=== PATIENT | female | born 1985 | race Asian ===

== ENCOUNTER → 2021-02-24 08:02 | Outpatient (BNVA) | payer OTHER, SELFPAY | PROVIDERS: Visit Provider Obstetrics & Gynecology | DX: O09.899 Supervision of other high risk pregnancies, unspecified trimester (principal); Z86.32 Personal history of gestational diabetes | CPT/HCPCS: 82951; 82952; 84315; 85025 ==

== ENCOUNTER → 2021-04-25 13:27 | Outpatient (BNVA) | payer OTHER, SELFPAY | PROVIDERS: Visit Provider Obstetrics & Gynecology | DX: O09.899 Supervision of other high risk pregnancies, unspecified trimester (principal); O09.893 Supervision of other high risk pregnancies, third trimester; O24.419 Gestational diabetes mellitus in pregnancy, unspecified control; O09.213 Supervision of pregnancy with history of pre-term labor, third trimester; O09.293 Supervision of pregnancy with other poor reproductive or obstetric history, third trimester; Z3A.36 36 weeks gestation of pregnancy | CPT/HCPCS: 36416; 82962; 84315; 87081 ==

== ENCOUNTER 2021-04-29 17:01 | Inpatient (IN) | payer OTHER, SELFPAY ==
[2021-04-29] VITALS (37 sets, daily range): BP systolic 95–171; BP diastolic 51–75; PULSE 69–112; RESP 15–17; TEMP 36.5–37.9; BMI 27.5
[2021-04-29 17:41] LABS: Basophils % 0.3 %; Eosinophils # 0.1 10^3/uL (0.0-0.8); Eosinophils % 0.9 %; Hematocrit 36.1 % (37.0-47.0); Hemoglobin 12.5 g/dL (11.5-15.3); Lymphocytes # 2.5 10^3/uL (0.8-4.8); Lymphocytes % 21.1 %; Mean Corpuscular HGB Conc 34.6 g/dL (30.0-36.0); Mean Corpuscular Hemoglobin 32.7 pg (28.0-34.0); Mean Corpuscular Volume 94.5 fl (81-99); Mean Platelet Volume 10.4 fL (7.4-10.4); Monocytes # 0.8 10^3/uL (0.2-0.9); Neutrophils # 8.41 10^3/uL (1.8-7.7); Nucleated Red Blood Cells % 0 %; Platelet Count 303 10^3/cmm (130-400); Red Blood Count 3.82 10^6/uL (4.1-5.3); Red Cell Distribution Width 13.7 % (12.1-15.1)
--- NOTE | 2021-04-29 17:45 | PM.OPHPUD ---
Labor & Delivery H&P Update Date of Procedure: April 29, 2021 Date H&P Performed: 04/25/21 H&P update information: I have reviewed H&P completed within last 30 days, I have examined patient prior to procedure and Changes to prior documentation as noted here Changes to previous documentation: The patient's cervix has changed to /2. She is in active labor Admission Diagnosis: Preop diagnosis: iup@ 37w3d Related Problem List Diagnoses (1) Gestational diabetes: (2) History of delivery: (3) Supervision of other high-risk :
[2021-04-29] MEDS: dextrose 5%-lactated ringers 1,000 ML 125 ML IV (19:35)
[2021-04-29] MEDS: fentaNYL 50 mcg/mL INJ 2mL IVP ×2 (19:36→20:38)
[2021-04-29] MEDS: oxytocin 30 UNIT/500 ML BAG 600 UNIT IV (20:27)
[2021-04-29] MEDS: lidocaine 2% INJ 20 mL INJECTION (20:29)
--- NOTE | 2021-04-29 21:06 | P.PCNOB_ITS ---
Delivery Note: Date of delivery: April 29, 2021 Pre-delivery diagnoses: iup @ 37w3d, active labor Post-delivery diagnoses: same Procedure: Op report anesthesia: Local Delivering Physician: naima Estimated blood loss (mL): 430 Findings: term female in the ALEXUS presentation Pre-Delivery Course: The patient presented in active labor. She had complete cervical dilation and began pushing. Delivery: The patient had complete cervical dilation and began to push. The head delivered in the ALEXUS position over an intact perineum under no anesthesia. The nose and mouth were bulb suctioned. The shoulders and body delivered atraumatically. The baby was placed onto the mother's abdomen. The cord was clamped and cut. . The placenta delivered spontaneously. It was inspected and found to be intact. Inspection of the perineum revealed a second- degree perineal laceration. This was repaired in the usual fashion. Estimated blood loss 430 mL. Apgars on baby were 8 at 1 minute and 9 at 5 minutes. Weight of baby is 6 pounds 10 ounces. Mother and baby were stable post delivery. History History History 4 Term 1 Miscarriages/Ectopic 1 1 Living Children 2 A&P Assessment and plan (1) Gestational diabetes: Status: Acute (2) History of delivery: Status: Acute (3) Supervision of other high-risk : Status: Acute Coding Level of Care Code Acute Ammunition Officer for Chg Fwd Diagnoses Gestational diabetes O24.419 History of delivery Z87.51 Supervision of other high-risk O09.899
[2021-04-30] VITALS (9 sets, daily range): BP systolic 87–106; BP diastolic 51–64; PULSE 57–111; RESP 17; TEMP 36.6
[2021-04-30] MEDS: acetaminophen 325 mg Tablet 650 MG PO (07:26)
[2021-04-30] MEDS: ibuprofen 800 mg tablet PO ×2 (09:45→18:45)
[2021-04-30] MEDS: prenatal vitamin Capsule 1 CAP PO (09:45)
[2021-04-30] MEDS: docusate sodium 100 mg Capsule PO ×2 (09:45→18:45)
[2021-04-30 10:25] LABS: Hematocrit 29.1 % (37.0-47.0); Mean Corpuscular HGB Conc 34.4 g/dL (30.0-36.0); Mean Corpuscular Hemoglobin 32.6 pg (28.0-34.0); Mean Corpuscular Volume 94.8 fl (81-99); Mean Platelet Volume 10.2 fL (7.4-10.4); Platelet Count 222 10^3/cmm (130-400); Red Blood Count 3.07 10^6/uL (4.1-5.3); Red Cell Distribution Width 13.7 % (12.1-15.1); White Blood Count 14.9 10^3/uL (4.0-10.0)
--- NOTE | 2021-04-30 14:25 | P.DS_ITS ---
Discharge Providers Date of Admission: 04/29/21 17:01 Date of Discharge: April 30, 2021 Attending Provider at Admission: Jagdeep Henson MD Attending Provider at Discharge: Khushboo Leung MD Diagnoses at Discharge Discharge Diagnosis (1) Gestational diabetes: Status: Acute (2) History of delivery: Status: Acute (3) Supervision of other high-risk : Status: Acute Reason for Visit Reason for Visit: spotting and back pain Physical Exam Narrative: EXAM NARRATIVE: The patient is doing well today. No concerns. She is , tolerating a regular diet. She denies any pain. Const: COMMON NORMALS: no acute distress, average body habitus, patient oriented x3, no limitations, healthy appearing, alert and well nourished GENERAL APPEARANCE: cooperative, comfortable, well kempt and well developed ORIENTATION/CONSCIOUSNESS: Yes awake, Yes oriented to person, Yes oriented to place and Yes oriented to time Resp: COMMON NORMALS: normal respiratory effort EFFORT & INSPECTION: Yes able to speak in complete sentences GI: COMMON NORMALS: Soft to palpation and non-tender PALPATION: Yes Soft to palpation Extremity: COMMON NORMALS: normal to inspection Neuro: COMMON NORMALS: patient oriented x3 SENSORIUM/ORIENTATION: Yes alert, Yes oriented to person, Yes oriented to place and Yes oriented to time Psych: COMMON NORMALS: mental status grossly normal, Normal thought process present, cooperative, normal affect and speech normal APPEARANCE: Yes grossly normal and Yes well kempt ATTITUDE: Yes calm and Yes engaged ACTIVITY/MOTOR BEHAVIOR: Yes appropriate eye contact SPEECH: Yes normal speech THOUGHT PROCESS: Normal thought process present Discharge Data Data Completed and Pending: Labs from last 24 hours 04/30/21 04/29/21 10:00 17:00 WBC 14.9 H 12.0 H RBC 3.07 L 3.82 L Hgb 10.0 L 12.5 Hct 29.1 L 36.1 L MCV 94.8 94.5 MCH 32.6 32.7 MCHC 34.4 34.6 RDW 13.7 13.7 Plt Count 222 303 MPV 10.2 10.4 Neut % (Auto) 70.0 Lymph % (Auto) 21.1 [place] % (Auto) 7.0 Eos % (Auto) 0.9 Baso % (Auto) 0.3 Neut # (Auto) 8.41 H Lymph # (Auto) 2.5 [place] # (Auto) 0.8 Eos # (Auto) 0.1 Baso # (Auto) 0.0 Nucleated RBC % (a uto) 0 Nucleated RBCs # 0.0 Vitals: Last Vital Signs Temp 97.9 F 04/30/21 01:43 Pulse 70 04/30/21 09:49 Resp 17 04/30/21 10:14 BP 96/53 04/30/21 09:49 Discharge Plan Discharge Patient Disposition: Home Condition: Stable Prescriptions: Continued prenat.vits,torito,oat-wkek-rjisn Tablet 1 tab PO DAILY RF: 0 metformin 500 mg tablet 500 mg PO BID RF: 0 calcium carbonate [Calcium 500] 500 mg calcium (1,250 mg) tablet 500 mg PO DAILY RF: 0 ferrous sulfate 325 mg (65 mg iron) tablet 325 mg PO DAILY RF: 0 metformin 500 mg tablet 500 mg PO BID Qty: 60 RF: 6 (DME) Blood Glucose Test Strip See Rx Instructions .Route Qty: 50 RF: 12 Discharge Orders: Discharge Order (Routine); Ordered 04/30/21 Ordered By: Khushboo Leung Patient Instructions: Depression (DC), Expression, Collection and Storage of Breast Milk (DC), Bleeding (DC), Preeclampsia and Eclampsia After Delivery (GEN), Breast Care for the Mother (DC), OB Discharge Report, OB Food/Drug Interaction Guide, Opioid Safety, OB Home Care, OB Vaginal Deliveries - [facility] Discharge Attestations Time Spent in Discharge Care*: less than 30 min Quality Metrics Clinical Quality Measures During this hospital stay, did patient experience: None Coding Level of Care Code Acute Chg FW DC note Diagnoses Gestational diabetes O24.419 History of delivery Z87.51 Supervision of other high-risk O09.899
== END 2021-04-30 22:30 | disposition home or self-care (01) | DRG 807 ==
LOC: OPOB 17:01 → OBGYN 17:01
PROVIDERS: Admitting Provider Obstetrics & Gynecology; Visit Provider Obstetrics & Gynecology
DX: O24.425 Gestational diabetes mellitus in childbirth, controlled by oral hypoglycemic drugs (principal); Z37.0 Single live birth; O70.1 Second degree perineal laceration during delivery; Z3A.37 37 weeks gestation of pregnancy; Z87.51 Personal history of pre-term labor
CPT/HCPCS: 36415; 59025; 59409; 85025; 85027; 96374; 96376; 98960; 99211; J3010

== ENCOUNTER → 2021-07-16 08:08 | Outpatient (BNVA) | payer OTHER, SELFPAY | PROVIDERS: Visit Provider Obstetrics & Gynecology | DX: O24.419 Gestational diabetes mellitus in pregnancy, unspecified control (principal); Z3A.00 Weeks of gestation of pregnancy not specified | CPT/HCPCS: 82947 ==

== ENCOUNTER → 2021-11-27 15:33 | Outpatient (BNVA) | payer OTHER, SELFPAY | PROVIDERS: Visit Provider Obstetrics & Gynecology | DX: Z01.419 Encounter for gynecological examination (general) (routine) without abnormal findings (principal) | CPT/HCPCS: 87624 ==

== ENCOUNTER 2023-11-13 15:28 | Emergency (ER) | payer OTHER, SELFPAY ==
[2023-11-13 15:32] VITALS: BP 121/84; PULSE 110; RESP 16; TEMP 36.8; O2SAT 99
--- NOTE | 2023-11-13 15:51 | ED_ITS ---
HPI - Abdominal Pain 2 General: Chief Complaint: Abdominal Pain Stated Complaint: abd pain Time Seen by Provider: 11/13/23 15:48 History of Present Illness: 38-year-old female comes in today with r ight upper quadrant abdominal pain that radiates to the back. Patient appears nontoxic. Patient reports no abdominal surgeries. Patient denies any alcohol, tobacco, or drug use. Patient reports back pain waxes and wanes. Patient reports some improvement of symptoms since arriving to the ER as her appetite has improved. Patient reports pain since last night. Associated Symptoms: Reports bloating, excessive flatus, heartburn and nausea Review of Systems 2 General: Reports: 10 or more systems reviewed and unremarkable except in HPI and below GI: Reports: abdominal pain, nausea, heartburn, bloating and excessive flatus PFSH ED 2 PFSH: Medical History History of gestational diabetes mellitus (GDM) History of labor Surgical History No pertinent past surgical history Family History Father Diabetes Mother Hypertension Denies family history of CAD (coronary artery disease) Clotting disorder Hyperlipidemia Chronic kidney disease (CKD) Bleeding disorder Cancer Stroke Social History Smoking and tobacco/nicotine status: unknown if used tobacco/nicotine Physical Exam 2 Const: COMMON NORMALS: alert HENMT: COMMON NORMALS: normocephalic HEAD & SCALP: normocephalic Neck/C-Spine: COMMON NORMALS: full ROM Resp: COMMON NORMALS: normal respiratory effort and clear to auscultation bilaterally AUSCULTATION: clear to auscultation bilaterally Cardio: COMMON NORMALS: regular rate RATE: regular rate GI: COMMON NORMALS: Soft to palpation and non-tender PALPATION: Yes Soft to palpation Back/Pelvis: COMMON NORMALS: thoracic and lumbar spine normal to inspection Extremity: COMMON NORMALS: full ROM Neuro: SENSORIUM/ORIENTATION: Yes alert Skin: COMMON NORMALS: turgor normal GENERAL SKIN EXAM: turgor normal Course 2 Vital Signs: Vital signs: Vital Signs Temperature 98.3 F 11/13/23 15:32 Pulse Rate 110 H 11/13/23 15:32 Respiratory Rate 16 11/13/23 15:32 Blood Pressure 121/84 11/13/23 15:32 Pulse Oximetry 99 11/13/23 15:32 Oxygen Delivery Me thod Room Air 11/13/23 15:32 MDM - Abdominal Pain Medical Decision Making Patient comes in today for complaints of right upper quadrant abdominal pain. On the exam patient has some right upper quadrant tenderness with deep palpation. No CVA tenderness. Abdomen soft nontender. Vital signs are normal. Differential diagnosis is cholecystitis, cholelithiasis, pancreatitis, GERD, gastritis, constipation. CBC CMP and urinalysis were unremarkable. Ultrasound gallbladder noted cholelithiasis without signs of cholecystitis. Reviewed exam with patient recommended follow-up with surgeon for further treatment of cholelithiasis. Recommend return to the ER for worsening symptoms or new concerns. Lab Data 11/13/23 15:55 11/13/23 15:55 Labs/Radiology: Laboratory Results WBC 10.64 10^3/uL (3.29-11.43) 11/13/23 15:55 RBC 4.46 10^6/uL (3.85-5.65) 11/13/23 15:55 Hgb 13.90 g/dL (11.27-16.99) 11/13/23 15:55 Hct 41.6 % (36-47) 11/13/23 15:55 MCV 93.3 fl (85-98) 11/13/23 15:55 MCH 31.2 pg (27-33) 11/13/23 15:55 MCHC 33.4 g/dL (30-55) 11/13/23 15:55 RDW 12.7 % (12.1-15.1) 11/13/23 15:55 Plt Count 388 10^3/cmm (157-399) 11/13/23 15:55 MPV 10.4 fL (7.4-10.4) 11/13/23 15:55 Neut % (Auto) 69.3 % 11/13/23 15:55 Lymph % (Auto) 22.3 % 11/13/23 15:55 [place] % (Auto) 6.8 % 11/13/23 15:55 Eos % (Auto) 0.7 % 11/13/23 15:55 Baso % (Auto) 0.6 % 11/13/23 15:55 Neut # (Auto) 7.39 10^3/uL (1.8-7.7) 11/13/23 15:55 Lymph # (Auto) 2.4 10^3/uL (0.8-4.8) 11/13/23 15:55 [place] # (Auto) 0.7 10^3/uL (0.2-0.9) 11/13/23 15:55 Eos # (Auto) 0.1 10^3/uL (0.0-0.8) 11/13/23 15:55 Baso # (Auto) 0.1 10^3/uL (0.0-0.1) 11/13/23 15:55 Nucleated RBC % (auto) 0 % 11/13/23 15:55 Nucleated RBCs # 0.0 /100WBC 11/13/23 15:55 Sodium 138 mmol/L (136-145) 11/13/23 15:55 Potassium 3.7 mmol/L (3.5-5.1) 11/13/23 15:55 Chloride 100 mmol/L (98-107) 11/13/23 15:55 Carbon Dioxide 24 mmol/L (22-29) 11/13/23 15:55 Anion Gap 17.7 (5-19) 11/13/23 15:55 BUN 7 mg/dL (6-20) 11/13/23 15:55 Creatinine 0.5 mg/dL (0.5-0.9) 11/13/23 15:55 GFR Calculation 138.1 mL/min (90-130) H 11/13/23 15:55 Glucose 104 mg/dL (65-115) 11/13/23 15:55 Calculated Osmolality 284 mOsm/kg (285-295) L 11/13/23 15:55 Calcium 9.7 mg/dL (8.5-10.5) 11/13/23 15:55 Total Bilirubin 0.4 mg/dL (0.15-1.2) 11/13/23 15:55 AST 12 U/L (0-32) 11/13/23 15:55 ALT 14 U/L (0-33) 11/13/23 15:55 Alkaline Phosphatase 51 U/L (35-105) 11/13/23 15:55 Total Protein 8.5 g/dL (6.6-8.7) 11/13/23 15:55 Albumin 4.9 g/dL (3.5-5.2) 11/13/23 15:55 Globulin 3.6 g/dL (1.3-4.6) 11/13/23 15:55 Lipase 32 U/L (13-60) 11/13/23 15:55 HCG, Qual Negative (Negative) 11/13/23 15:55 Urine Color Yellow (Yellow) 11/13/23 15:49 Urine Appearance Clear (CLEAR) 11/13/23 15:49 Urine pH 6 (5-7) 11/13/23 15:49 Ur Specific [place] 1.005 (1.005-1.030) 11/13/23 15:49 Urine Protein Neg (Negative) 11/13/23 15:49 Urine Glucose (UA) Norm (Normal) 11/13/23 15:49 Urine Ketones Negative (Negative) 11/13/23 15:49 Urine Blood Neg (Negative) 11/13/23 15:49 Urine Nitrate Negative (Negative) 11/13/23 15:49 Urine Bilirubin Neg (Negative) 11/13/23 15:49 Urine Urobilinogen Norm mg/dL (Negative) 11/13/23 15:49 Ur Leukocyte Esterase Negative (Negative) 11/13/23 15:49 XR interpretation done by ED provider, pending radiology final review Discharge Plan Discharge Patient Disposition: Home Clinical Impression: Cholelithiasis Qualifiers: Cholelithiasis location: gallbladder Cholecystitis presence: without cholecystitis Biliary obstruction: without biliary obstruction Qualified Code(s): K80.20 - Calculus of gallbladder without cholecystitis without obstruction Condition: Stable Prescriptions: New ondansetron 4 mg tablet,disintegrating 4 mg PO Q8H PRN (Reason: nausea and vomiting) Qty: 10 0RF ketorolac 10 mg tablet 10 mg PO Q6H PRN (Reason: pain) Qty: 12 0RF Rx Instructions: maximum total duration of 5 days from all oral, intranasal, or parenteral formulations dicyclomine 20 mg tablet 20 mg PO TID Qty: 30 0RF Rx Instructions: take before each meal for gallbladder colic No Action prenat.vits,torito,ssx-uwrl-opqil Tablet 1 tab PO DAILY Discharge Orders: Discharge ED (Routine); Ordered 11/13/23 Ordered By: Hugo J Fnin Discharge Diet: Low Fat Discharge Activity: Increase activity as tolerated Patient Instructions: Gallstones (ED), Low Fat Diet (ED) Activity Restrictions/Additional Instructions: Follow-up with surgeon to discuss removal of gallbladder. Return to ED for worsening symptoms such as uncontrolled pain, fever greater than 100.4, yellowing of the skin or eyes. Coding Level of Care Code ED Underwear Trimmer for Miguel Rainey
--- NOTE | 2023-11-13 15:55 | USR_ITS ---
PROCEDURE INFORMATION: Exam: US Abdomen, Limited; Right Upper Quadrant Exam date and time: 11/13/2023 4:17 PM Age: 38 years old Clinical indication: Abdominal pain; Acute; Additional info: Ruq pain TECHNIQUE: Imaging protocol: Real time ultrasound of the abdomen with image documentation. Limited exam focused on the right upper quadrant. COMPARISON: US OB [facility] w [facility] 04/25/2021 12:55 PM FINDINGS: Liver: Normal. No masses. Gallbladder: Stones and sludge are present within the gallbladder. The wall is borderline at 3 mm. Biliary ducts: Normal. No stones. No dilation. Pancreas: Visualized pancreas is unremarkable. Right kidney: Normal. No mass. No hydronephrosis. US/US gall bladder [id number] IMPRESSION: Cholelithiasis with a borderline gallbladder wall.
[2023-11-13] MEDS: sodium chloride 0.9% 500 ML 999 ML IV (15:59)
[2023-11-13] MEDS: ondansetron 2 mg/ML SDV 2 mL 4 MG IVP (16:00)
[2023-11-13 16:01] LABS: Basophils # 0.1 10^3/uL (0.0-0.1); Basophils % 0.6 %; Eosinophils # 0.1 10^3/uL (0.0-0.8); Eosinophils % 0.7 %; Hematocrit 41.6 % (36-47); Lymphocytes # 2.4 10^3/uL (0.8-4.8); Lymphocytes % 22.3 %; Mean Corpuscular HGB Conc 33.4 g/dL (30-55); Mean Corpuscular Hemoglobin 31.2 pg (27-33); Mean Corpuscular Volume 93.3 fl (85-98); Mean Platelet Volume 10.4 fL (7.4-10.4); Monocytes # 0.7 10^3/uL (0.2-0.9); Monocytes % 6.8 %; Neutrophils # 7.39 10^3/uL (1.8-7.7); Neutrophils % 69.3 %; Nucleated Red Blood Cells % 0 %; Platelet Count 388 10^3/cmm (157-399); Red Blood Count 4.46 10^6/uL (3.85-5.65); Red Cell Distribution Width 12.7 % (12.1-15.1); White Blood Count 10.64 10^3/uL (3.29-11.43)
[2023-11-13] MEDS: ketorolac 30 mg/mL INJ 15 MG IVP (16:01)
[2023-11-13 16:09] LABS: Add Urine Microscopic? NO; Charge for UA Resulting for Rev
[2023-11-13 16:20] LABS: Alanine Aminotransferase 14 U/L (0-33); Albumin Level 4.9 g/dL (3.5-5.2); Alkaline Phosphatase 51 U/L (35-105); Anion Gap 17.7 (5-19); Aspartate Amino Transferase 12 U/L (0-32); Blood Urea Nitrogen 7 mg/dL (6-20); Calcium 9.7 mg/dL (8.5-10.5); Carbon Dioxide 24 mmol/L (22-29); Chloride 100 mmol/L (98-107); Creatinine Clr Calc Pharmacy 123.8635; Globulin 3.6 g/dL (1.3-4.6); Glomerular Filtration Rate 138.1 mL/min (90-130); Glucose 104 mg/dL (65-115); Lipase 32 U/L (13-60); Osmolality Calculated 284 mOsm/kg (285-295); Potassium 3.7 mmol/L (3.5-5.1); Sodium 138 mmol/L (136-145); Total Bilirubin 0.4 mg/dL (0.15-1.2); Total Protein 8.5 g/dL (6.6-8.7)
[2023-11-13 16:34] VITALS: BP 127/83; PULSE 111; RESP 16; O2SAT 97
[2023-11-13 16:41] LABS: HCG, Serum Qual Negative (Negative)
[2023-11-13 16:41] LABS: Bilirubin Urine Neg (Negative); Blood Urine Neg (Negative); Glucose Urine UA Norm (Normal); Ketones Urine Negative (Negative); Leukocyte Esterase Urine Negative (Negative); Nitrate Urine Negative (Negative); Protein Urine Neg (Negative); Specific Gravity, Urine 1.005 (1.005-1.030); Urine Appearance Clear (CLEAR); Urine Color Yellow (Yellow); Urobilinogen Urine Norm (Negative); pH Urine 6 (5-7)
[2023-11-13 17:13] VITALS: BP 116/74; PULSE 88; RESP 16; O2SAT 95
--- NOTE | 2023-11-15 14:42 | DCPLANNER ---
messaged gen surg for er f/u
== END 2023-11-13 17:15 | disposition home or self-care (01) ==
PROVIDERS: Emergency Provider Nurse Practitioner Family
DX: K80.20 Calculus of gallbladder without cholecystitis without obstruction (principal)
CPT/HCPCS: 76705; 80053; 81003; 83690; 84703; 85025; 96361; 96374; 96375; 99285; J1885; J2405; J7040

== ENCOUNTER → 2024-09-05 13:22 | Outpatient (BNVA) | payer OTHER, SELFPAY | PROVIDERS: PCP Nurse Practitioner Family; Visit Provider Nurse Practitioner Family | DX: R10.9 Unspecified abdominal pain (principal) | CPT/HCPCS: 80053; 82150; 83690; 85025 ==

== ENCOUNTER 2024-09-13 08:26 | Outpatient (CLI) | payer OTHER, SELFPAY ==
--- NOTE | 2024-09-13 08:45 | US_ITS ---
WS: [id number] Complete ABDOMINAL ULTRASOUND HISTORY: R10.9 - Unspecified abdominal pain COMPARISON: 11/13/2023 Liver: 15.8 cm in length. Normal size liver and echogenicity. No bile duct dilatation or mass. Portal Vein: Normal hepatopetal flow with monophasic waveform. Gallbladder: Distended gallbladder with numerous stones. No pericholecystic fluid. Additional low-level echoes within the gallbladder consistent with sludge. Nonshadowing focus within the gallbladder adjacent to the wall is probably a small polyp. CBD: 0.3 cm Pancreas: Not visualized. Right kidney: 10.4 cm x 5.0 x 4.5 cm. Cortex:1.3 cm. Normal size and echogenicity. No hydronephrosis or mass. Left kidney: 11.0 (cm) cm x 5.4 (cm) cm x 6.4 (cm) cm. Cortex: 1.2 cm. Normal size kidney. Hyperechoic focus in the superior pole measures 1.3 x 1.7 x 1.6 cm. No solid mass or increased vascularity. No cortical thinning. Spleen: 8.8 cm. Normal size and echogenicity. Aorta and IVC: Unremarkable abdominal aorta and IVC. US/US abdomen complete* [id number] Impression: 1. Cholelithiasis without evidence for acute cholecystitis. 2. There is also a small amount of sludge within the gallbladder and a nonshad owing focus consistent with a polyp. 3. Normal size liver. 4. No intrahepatic duct dilatation. 5. 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
--- NOTE | 2024-09-13 09:14 | XR_ITS ---
WS: [id number] Lumbar spine, 2 views, 09/13/2024 Clinical Data: M54.9 - Dorsalgia, unspecified Comparison: None. Findings: No compression fractures or subluxation is seen. No disc space narrowing is seen. The transverse processes and SI joints are normal. XR/XR lumbar spine 2-3V* [id number] Impression: Negative lumbar spine.
--- NOTE | 2024-09-13 09:14 | XR_ITS ---
WS: [id number] Thoracic spine, 3 views, 09/13/2024 Clinical Data: M54.9 - Dorsalgia, unspecified Comparison: None. Findings: No compression fractures are seen. The disc heights are normal. The paravertebral regions are normal. XR/XR thoracic spine 3V* [id number] Impression: Negative thoracic spine.
== END 2024-09-13 08:27 | disposition home or self-care (01) ==
LOC: RAD 08:28
PROVIDERS: PCP Nurse Practitioner Family; Visit Provider Nurse Practitioner Family
DX: M54.9 Dorsalgia, unspecified (principal); K80.20 Calculus of gallbladder without cholecystitis without obstruction; R10.30 Lower abdominal pain, unspecified; R93.3 Abnormal findings on diagnostic imaging of other parts of digestive tract; R93.422 Abnormal radiologic findings on diagnostic imaging of left kidney
CPT/HCPCS: 72072; 72100; 76700